=== PATIENT | female | born 1960 | race Caucasian/White ===

== ENCOUNTER → 2017-02-04 | Outpatient (CLI) | payer OTHER ==
[~2017-02-04] MED LIST: IBUP-1324 PO; LEVO50TA69 PO; LEVO75TA57 PO; OMEP-29 PO; [UNRECOGNIZED DRUG - OTHER] SL
--- NOTE | 2017-02-04 16:34 | DI ---
Indication: ITS.REASON: J32.9 Chronic sinusitis, unspecified PROCEDURE: CT SINUSES W/O CONTRAST: Encounter: Initial Comparison: None Technique: Axial CT images were performed through the sinuses without intravenous contrast. Coronal and sagittal two-dimensional reformats. Automated Exposure Control and Iterative Reconstruction dose reducing techniques were utilized. Findings: The maxillary sinuses are clear. The ostiomeatal units are patent. The frontal sinuses show mild mucosal thickening and are hypoplastic. There is mucosal thickening in the frontoethmoidal recess area with mild mucosal thickening in the anterior and middle ethmoids. Right sphenoid sinus is hypoplastic but grossly clear. Left sphenoid sinus is clear. Sphenoid ostia are patent. Mastoid air cells are clear. No evidence of nasal septal deviation or spurring. Impression: Mild frontoethmoidal sinus disease without evidence of acute sinusitis. .
== END ==
LOC: IMA 15:36
PROVIDERS: ATTEND Family Medicine
DX: J34.89 Other specified disorders of nose and nasal sinuses (principal); J32.9 Chronic sinusitis, unspecified